=== PATIENT | female | born 1965 | race Caucasian/White ===

== ENCOUNTER 2017-01-12 02:40 | Emergency (ER) | END 2017-01-12 04:53 | disposition home or self-care (01) | DX: L50.9 Urticaria, unspecified (principal) | CPT/HCPCS: 96372; 99284; J1200 ==

== ENCOUNTER 2017-06-05 15:55 | Emergency (ER) | payer MEDICAID ==
[~2017-06-05] VITALS: Wt 63.6 kg
[~2017-06-05 15:55] MED LIST: BEN50 PO; FAMO-96 PO; PRED50TA PO
[2017-06-05] MEDS ORDERED: ONDANSETRON 4 MG INJ IV STA (16:04)
[2017-06-05] MEDS ORDERED: morphine 4 MG/ML VIAL IV STA (16:04)
[2017-06-05 16:22] LABS: BASOPHIL # 0.1 10^3/ul (0.0-0.1); BASOPHILS % 0.5 % (0.0-2.0); EOSINOPHILS # 0.2 10^3/ul (0.0-0.5); EOSINOPHILS % 2.4 % (0.0-7.0); HEMATOCRIT 38.7 % (37.0-47.0); HEMOGLOBIN 13.4 g/dl (12.0-16.0); LYMPHOCYTES # 3.4 10^3/ul (0.8-2.9); LYMPHOCYTES % 37.1 % (15.0-51.0); MEAN CORPUSCULAR HEMOGLOBIN 29.9 pg (29.0-33.0); MEAN CORPUSCULAR HGB CONC 34.6 g/dl (32.0-37.0); MEAN CORPUSCULAR VOLUME 86.4 fl (82.0-101.0); MONOCYTE # 0.5 10^3/ul (0.3-0.9); MONOCYTES % 5.6 % (0.0-11.0); NEUTROPHIL # 4.9 10^3/ul (1.6-7.5); NEUTROPHILS % 53.7 % (39.0-77.0); PLATELET COUNT 312 10^3/UL (140-415); RED BLOOD COUNT 4.48 10^6/ul (4.20-5.40); RED CELL DISTRIBUTION WIDTH 12.2 % (11.5-14.5); WHITE BLOOD COUNT 9.1 10^3/ul (4.8-10.8)
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
[2017-06-05 16:46] LABS: ALANINE AMINOTRANSFERASE 74 IU/L (13-69); ALBUMIN 4.6 g/dl (3.3-4.9); ALBUMIN/GLOBULIN RATIO 1.24; ALKALINE PHOSPHATASE 113 IU/L (42-121); ANION GAP 17 (8-16); ASPARTATE AMINO TRANSFERASE 48 IU/L (15-46); BILIRUBIN,INDIRECT 0.4 mg/dl (0-1.1); BILIRUBIN,TOTAL 0.4 mg/dl (0.2-1.3); BLOOD UREA NITROGEN 11 mg/dl (7-20); CALCIUM 10.2 mg/dl (8.4-10.2); CARBON DIOXIDE 26 mmol/L (21-31); CHLORIDE 105 mmol/L (97-110); CREATINE KINASE 80 IU/L (23-200); GLUCOSE 101 mg/dl (70-220); POTASSIUM 3.5 mmol/L (3.5-5.1); SODIUM 144 mmol/L (135-144); TOTAL PROTEIN 8.3 g/dl (6.1-8.1)
[2017-06-05] MEDS ORDERED: NAPR-260 PO (16:46)
--- NOTE | 2017-06-05 16:53 | RADRPT ---
PROCEDURE: XR Chest. CLINICAL INDICATION: chest pain TECHNIQUE: Single frontal view of the chest was obtained COMPARISON: None FINDINGS: The heart and mediastinum are within normal limits. The lungs are clear. There is no pleural effusion or pneumothorax. RPTAT: AA IMPRESSION: No acute disease. .Afshin Rosen MD, Date Time Electronically viewed and signed by .Afshin Rosen MD, on 06/05/2017 16:52 .S/
[2017-06-05 16:57] LABS: TROPONIN-I < 0.012 ng/ml (0.00-0.12)
[2017-06-05] MEDS ORDERED: KETOROLAC 30 MG INJ IV STA (17:09)
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
[2017-06-05 18:38] VITALS: BP 168/96; PULSE 70; RESP 14
== END 2017-06-05 18:39 | disposition home or self-care (01) ==
LOC: E/R 15:55
DX: S13.4XXA Sprain of ligaments of cervical spine, initial encounter (principal); S09.90XA Unspecified injury of head, initial encounter; R51 Headache; R07.89 Other chest pain; V49.50XA Passenger injured in collision with unspecified motor vehicles in traffic accident, initial encounter
CPT/HCPCS: 36415; 70450; 71010; 72125; 80053; 82550; 82553; 84484; 85025; 93005; 96374; 96375; J1885; J2270; J2405; Z7502